=== PATIENT | female | born 1995 | race Caucasian/White ===

== ENCOUNTER 2020-08-31 06:19 | Inpatient (IN) | payer OTHER ==
[~2020-08-31] VITALS: Ht 157.5 cm; Wt 72.6 kg
[2020-08-31 07:16] LABS: HEMOGLOBIN 13.6 gm/dl (12.3-15.3); RED BLOOD COUNT 4.79 M/UL (4.00-5.10); WHITE BLOOD COUNT 19.9 K/UL (4.5-11.0)
[2020-08-31] MEDS ORDERED: IBUPROFEN600 MG PO (13:18)
[2020-08-31] MEDS ORDERED: HYDROCODON-ACE1 EAC4 PO (13:18)
[2020-08-31] MEDS ORDERED: DOCUSATE SODIU100 MG PO (13:18)
[2020-09-01 06:27] LABS: HEMOGLOBIN 10.8 gm/dl (12.3-15.3)
== END 2020-09-02 16:54 | disposition home or self-care (01) | DRG 807 ==
LOC: OB 06:19
PROVIDERS: Obstetrics & Gynecology; ADMIT Obstetrics & Gynecology
PROC: 10E0XZZ Delivery of Products of Conception, External Approach (ICD-10-PCS; principal; 2020-08-31)
PROC: 10907ZC Drainage of Amniotic Fluid, Therapeutic from Products of Conception, Via Natural or Artificial Opening (ICD-10-PCS; principal; 2020-08-31)
PROC: 0HQ9XZZ Repair Perineum Skin, External Approach (ICD-10-PCS; principal; 2020-08-31)
PROC: 4A1HX4Z Monitoring of Products of Conception, Cardiac Electrical Activity, External Approach (ICD-10-PCS; principal; 2020-08-31)
PROC: 3E02340 Introduction of Influenza Vaccine into Muscle, Percutaneous Approach (ICD-10-PCS; 2020-08-31)
DX: O99.824 Streptococcus B carrier state complicating childbirth (principal); Z37.0 Single live birth; Z3A.38 38 weeks gestation of pregnancy; O70.0 First degree perineal laceration during delivery; Z20.822 Contact with and (suspected) exposure to COVID-19; Z23 Encounter for immunization
CPT/HCPCS: 36415; 51702; 81001; 82800; 85014; 85018; 85025; 90715; J2405; J2590; J7120